=== PATIENT | female | born 1965 | race Caucasian/White ===

== ENCOUNTER 2016-10-12 13:55 | Outpatient (CLI) | payer OTHER ==
--- NOTE | 2016-10-12 16:52 | Diagnostic Imaging Report ---
[facility] [id number] [facility].[address] [id number] Report Submission Date: October 12, 2016 4:48:34 PM CDT Patient Study Name: RITIKA NIELSEN Date: October 12, 2016 2:06:56 PM CDT Modality Type: US Gender: F Description: US ABD LIMITED : 61 Institution: [facility] Physician: VENKATA TAVAREZ - OP Ultrasound right upper quadrant Clinical history right upper quadrant pain Technique: Ultrasound of the and color Doppler was performed right upper quadrant. Findings: The liver is enlarged and increase in echogenicity consistent with fatty change of the liver. The gallbladder is unremarkable. Pancreas is not enlarged. The head of the pancreas measures 2.1 cm. There is no ascites. Liver measures 21 cm. The gallbladder measures 6.9 x 3.5 cm. The gallbladder wall thickness is 2 mm. The common bile duct measures 5 mm. Right kidney is within normal limits. Right kidney measures 12.4 x 5.9 x 5.3 cm. Impression: Enlarged fatty liver otherwise negative ultrasound of the right upper quadrant Electronically signed on October 12, 2016 4:48:34 PM CDT by: Jude HINES
== END 2016-10-12 13:56 ==
LOC: RAD 13:55
PROVIDERS: ATTEND Family Medicine
DX: R10.11 Right upper quadrant pain (principal)
CPT/HCPCS: 76705